=== PATIENT | male | born 1935 | race Caucasian/White ===

== ENCOUNTER 2017-04-07 10:34 | Emergency (ER) | payer MEDICARE ==
[~2017-04-07] VITALS: Ht 188 cm; Wt 80.0 kg
[2017-04-07] MEDS ORDERED: ASPIRIN81 MG PO (10:45)
[2017-04-07] MEDS ORDERED: LEVOTHYROXIN100 MCG PO (10:45)
[2017-04-07] MEDS ORDERED: METOPROL TAR25 M1 PO (10:45)
[2017-04-07] MEDS ORDERED: TAMSULOSIN HCL0.4 MG PO (10:46)
[2017-04-07] MEDS ORDERED: LORAZEPAM0.5 MG PO (10:46)
[2017-04-07] MEDS ORDERED: ATORVASTATIN CA40 MG PO (10:46)
[2017-04-07 11:23] LABS: HEMATOCRIT 36.8 % (39.0-50.0); HEMOGLOBIN 12.4 g/dl (14.0-18.0); IMMATURE GRANULOCYTES 0.3 % (0.0-1.0); MEAN CELL VOLUME 97.4 fL CALC (80.0-100.0); MEAN CORPUSCULAR HGB 32.8 pG CALC (26.0-32.0); MEAN CORPUSCULAR HGB CONC 33.7 g/L CALC (32.0-36.0); NEUT# 7.81 thou/uL (1.82-7.42); RED BLOOD COUNT 3.78 mill/uL (4.70-6.10); RED CELL DISTRI WIDTH 13.2 % (11.5-15.5)
[2017-04-07 11:54] LABS: ALBUMIN 3.9 g/dL (3.2-5.0); ALKALINE PHOSPHATASE 321 u/l (38-126); AMYLASE 59 u/l (30-110); ANION GAP 15 (6-22 (CALC)); BILIRUBIN, TOTAL 2.1 mg/dL (0.0-1.4); BUN 15 mg/dL (8-23); BUN/CREATININE RATIO 15 (12-20 (CALC)); CALCIUM 9.3 mg/dL (8.4-10.2); CARBON DIOXIDE 25 mmol/l (22-30); CHLORIDE 104 mmol/l (95-108); GFR > 60 ML/MIN (>=60 (CALC)); GFR FOR AFR.AMER. > 60 ML/MIN (>=60 (CALC)); GLUCOSE 103 mg/dL (82-115); LIPASE 94 u/l (23-300); SGOT/AST 128 u/l (19-48); SGPT/ALT 126 u/l (11-66); SODIUM 140 mmol/l (137-146); TOTAL PROTEIN 7.2 g/dL (6.3-8.2)
[2017-04-07 11:59] LABS: URINE BILIRUBIN - DIPSTICK NEGATIVE (NEGATIVE); URINE BLOOD DIPSTICK NEGATIVE (NEGATIVE); URINE COLOR YELLOW; URINE GLUCOSE - DIPSTICK NEGATIVE (NEGATIVE); URINE KETONE NEGATIVE (NEGATIVE); URINE LEUK ESTERASE NEGATIVE (NEGATIVE); URINE NITRITE - DIPSTICK NEGATIVE (Negative); URINE PH 6.5 (4.5-8.0); URINE PROTEIN - DIPSTICK NEGATIVE (NEG-TRACE); URINE UROBILINOGEN - DIPSTICK 0.2 E.U./dL (0.2)
[2017-04-07 12:02] LABS: URINE CLARITY CLEAR
[2017-04-07 12:06] LABS: MYOGLOBIN 71 ng/mL (0 - 121)
[2017-04-07 15:09] LABS: TSH, 3RD GENERATION 1.24 uIU/mL (0.47 - 4.68)
[2017-04-07 16:30] VITALS: BP 153/69
== END 2017-04-07 16:30 | disposition short-term general hospital (02) ==
LOC: ED 10:34
PROVIDERS: Emergency Medicine
DX: K80.51 Calculus of bile duct without cholangitis or cholecystitis with obstruction (principal); R10.31 Right lower quadrant pain; R19.7 Diarrhea, unspecified; I10 Essential (primary) hypertension; R11.2 Nausea with vomiting, unspecified; R42 Dizziness and giddiness

== ENCOUNTER 2017-10-25 09:57 | Emergency (ER) | payer MEDICARE ==
[~2017-10-25] VITALS: Ht 172.7 cm; Wt 73.6 kg
[~2017-10-25 09:57] MED LIST: ASPIRIN81 MG PO; ATORVASTATIN CA40 MG PO; LEVOTHYROXIN100 MCG PO; LORAZEPAM0.5 MG PO; METOPROL TAR25 M1 PO; TAMSULOSIN HCL0.4 MG PO
[2017-10-25] MEDS ORDERED: ATIVAN1 MG PO (11:01)
[2017-10-25] MEDS ORDERED: TRAMADOL HCL50 MG PO (11:01)
[2017-10-25] MEDS ORDERED: LOPRESSOR25 M1 PO (11:02)
[2017-10-25] MEDS ORDERED: ADLT ASA LOW81 MG PO (11:04)
[2017-10-25] MEDS ORDERED: ULTRAM50 M1 PO (11:22)
[2017-10-25 11:33] VITALS: BP 116/67
== END 2017-10-25 11:33 | disposition home or self-care (01) ==
LOC: ED 09:57
DX: S20.212A Contusion of left front wall of thorax, initial encounter (principal); S00.81XA Abrasion of other part of head, initial encounter; S00.83XA Contusion of other part of head, initial encounter; E07.9 Disorder of thyroid, unspecified; F17.290 Nicotine dependence, other tobacco product, uncomplicated; W19.XXXA Unspecified fall, initial encounter; Y92.009 Unspecified place in unspecified non-institutional (private) residence as the place of occurrence of the external cause; Z95.1 Presence of aortocoronary bypass graft